=== PATIENT | male | born 1945 | race Caucasian/White ===

== ENCOUNTER 2021-01-06 09:50 | Outpatient (CLI) | payer MEDICARE, SELFPAY ==
--- NOTE | 2021-01-06 11:07 | ECG_ITS ---
Measurements Intervals [place] Rate: 55 P: -6 [place]: 209 QRS: -36 QRSD: 112 T: 10 QT: 404 QTc: 388 Interpretive Statements SINUS BRADYCARDIA WITH FIRST DEGREE AV BLOCK LEFT AXIS DEVIATION CANNOT RULE OUT SEPTAL INFARCT, AGE INDETERMINATE BORDERLINE T WAVE ABNORMALITY- INFERIOR LEADS BASELINE ARTIFACT- I, II, AVR ABNORMAL ECG Electronically Signed On 01-06-2021 12:06:21 CDT by Ervin May D.O.
[2021-01-06 11:54] LABS: Basophils Absolute Auto 0.1 K/mm3 (0.0-0.1); Basophils Percent Auto 1.8 % (0.2-1.2); Eosinophils Absolute Auto 0.2 K/mm3 (0-0.3); Eosinophils Percent Auto 5.1 % (0-4.4); Hematocrit 40.1 % (42.0-52.0); Hemoglobin 13.7 g/dL (14.0-18.0); Immature Granulocyte Absolute 0.01 K/mm3 (0.00-0.031); Immature Granulocyte Percent A 0.2 % (0-0.5); Lymphocytes Absolute Auto 0.64 K/mm3 (0.9-3.2); Lymphocytes Percent Auto 14.3 % (18.3-44.2); Mean Corpuscular HGB Conc 34.2 g/dl (32-36); Mean Corpuscular Hemoglobin 34.7 pg (26-34); Mean Corpuscular Volume 101.5 fl (80-100); Mean Platelet Volume 10.7 fl (7.4-10.4); Monocytes Absolute Auto 0.4 K/mm3 (0.1-0.6); Monocytes Percent Auto 9.4 % (2.6-8.5); Neutrophils Absolute Auto 3.1 K/mm3 (1.3-6.7); Neutrophils Percent Auto 69.2 % (45.5-73.1); Platelet Count Result 216 k/mm3 (150-375); Red Blood Count 3.95 M/mm3 (4.6-6.20); Red Cell Distribution Width 12.7 % (11.5-14.5); White Blood Count 4.5 K/mm3 (4.5-10.0)
[2021-01-06 11:57] LABS: Add Urine Microscopic? YES; Appearance Urine Clear (Clear); Bilirubin Urine Negative (Negative); Blood Urine 1+ (Negative); Color Urine Straw (Yellow); Glucose Urine UA Negative (Negative); Ketones Urine Negative (Negative); Leukocyte Esterase Ur Negative LEU/UL (Negative); Nitrate Urine Negative (Negative); Protein Urine Negative (Negative); Specific Grav Ur 1.009 (1.001-1.035); Urobilinogen Urine Negative mg/dL (<2.0); WBC Urine 0-3 /hpf
[2021-01-06 12:08] LABS: Prothrombin Time 13.1 Seconds (11.1-14.7)
[2021-01-06 12:09] LABS: Partial Thromboplastin Time 29.1 SECONDS (22.3-36.8)
[2021-01-06 12:12] LABS: Albumin Level 4.3 g/dL (3.5-5.1); Anion Gap 7 mmol/L (8-16); Blood Urea Nitrogen 17 mg/dL (9-20); Calcium 9.5 mg/dL (8.4-10.2); Carbon Dioxide 26 mmol/L (22-30); Chloride 105 mmol/L (98-107); Estimated Glomerular Filt Rate > 60; Glucose 97 mg/dL (65-110); Potassium 4.3 mmol/L (3.4-5.0); Sodium 138 mmol/L (137-145)
[2021-01-06 12:16] LABS: Urine Cotinine NEGATIVE
[2021-01-06 13:10] LABS: Hemoglobin A1C 5.3 % (<5.7)
== END 2021-01-06 09:51 | disposition home or self-care (01) ==
PROVIDERS: PCP Internal Medicine; Visit Provider Orthopaedic Surgery
DX: Z01.818 Encounter for other preprocedural examination (principal); M17.11 Unilateral primary osteoarthritis, right knee; R94.31 Abnormal electrocardiogram [ECG] [EKG]
CPT/HCPCS: 80048; 80307; 81001; 82040; 83036; 85025; 85610; 85730; 87081; 93005

== ENCOUNTER 2021-01-24 00:14 | Day surgery (SDC) | payer MEDICARE, SELFPAY ==
[2021-01-06 10:12] VITALS: BP 164/98; PULSE 64; RESP 18; TEMP 37.1; O2SAT 99; BMI 24.5
--- NOTE | 2021-01-23 12:04 | WPDANESEPPF ---
Anes - Initial Pre Proc Eval Procedure: Operation Date: 01/24/21 07:30 Proposed Procedures p Right Total Knee Arthroplasty - Chris Boland MD Date/Time: 01/23/21 12:04 Surgeon: Chris Boland MD Pre Op Diagnosis: Right Knee DJD Patient Data Age: 75 Gender: M Height: 1.83 m Weight: 82.2 kg Last Vital Signs Temp 37.1 C 01/06/21 10:12 Pulse 64 01/06/21 10:12 Resp 18 01/06/21 10:12 BP 164/98 H 01/06/21 10:12 Pulse Ox 99 01/06/21 10:12 Allergies Allergy/AdvReac Type Severity Reaction Status Date / Time No Known Allergies Allergy Verified 01/06/21 10:03 Home Medications Medication Instructions Recorded Confirmed Type chlorhexidine gluconate 4 % 1 applic TOPICAL ONCE #237 ml 11/10/20 01/06/21 Rx topical liquid apixaban [Eliquis] 5 mg PO BID 01/06/21 01/06/21 History celecoxib 200 mg PO DAILY 01/06/21 01/06/21 History rosuvastatin 10 mg PO HS 01/06/21 01/06/21 History Patient hx anesthesia problems: none Family hx anesthesia problems: none Results Review: All pre-operative results and documents have been reviewed as part of the pre-operative evaluation. [facility] Past Medical History Medical History (Updated 01/23/21 @ 12:05 by Fadi Higuera DO) Afib Bilateral knee pain DJD (degenerative joint disease) of knee Effusion, right knee Foot drop, bilateral Hyperlipidemia Left knee DJD Neuropathy Right knee DJD Right shoulder pain Rotator cuff tear Social History Social History Smoking packs per day: 1 Smoking cigarettes per day: 20.0 Years smoked: 6 Smoking pack-years: 6.00 Tobacco type: cigarettes Smoking end date: 10/06/74 Alcohol intake: never Drinks per week: 4 Substance use: never Living arrangements: alone Additional living arrangements comments: Gender identity (if verbalized by the patient): Male Spiritual care concerns: No Anes - Eval Final PreProcedure Day of Procedure 01/23/21 12:04 Patient weight: normal Heart: regular rate and rhythm Lungs: clear to auscultation and normal air movement Airway: Mallampati scale class II Neurological: alert and oriented Last oral intake: >/= 8 hours ASA classification: III Emergent: no Anesthetic plan: proceed Anesthesia type and monitoring: general GIVS and standard monitoring Results Review: All pre-operative results and documents have been reviewed as part of the pre-operative evaluation. Informed Consent: The patient's anesthetic plan and its attendant risks and benefits were discussed with the patient/family/POA. Questions were solicited and answers provided to the satisfaction of the patient/family/POA.
--- NOTE | 2021-01-23 12:05 | WPDANESPNB ---
Anes - Peripheral Nerve Block Date/Time: 01/23/21 12:05 I have discussed with the patient/family/POA the placement of a peripheral nerve block for post-operative pain management, including associated risks, benefits, complications, and side effects. Alternative methods of post-operative analgesia were detailed. Questions were solicited and answers provided to the satisfaction of the patient/family/POA. Time-Out: A pre-procedural Time-Out was completed immediately before starting the procedure and confirmed: Patient Identification, Site, Procedure, Patient Position and the Availability of Requisite Equipment. Clinical Indications: Acute post-operative pain management requested by the operative surgeon. Nerve Block Insertion Note Anes-nerve block: adductor canal right Patient position: supine Skin prep: chlorhexidine Needle: 22 gauge, stimulating, insulated echogenic needle. Needle length: 80 mm Technique: ultrasound Injectate: bupivacaine 0.5% with epi 5 mcg/ml (30cc - no epi) Observations: tolerated well Complications: none Procedure start time:: 727 Procedure end time:: 731
[2021-01-24] VITALS (16 sets, daily range): BP systolic 139–160; BP diastolic 83–97; PULSE 60–84; RESP 12–20; TEMP 35.9–36.7; O2SAT 93–100
--- NOTE | ~2021-01-24 | XR_ITS ---
EXAMINATION: XR knee RT 2V DATE: 01/24/2021 10:08 INDICATION: Postoperative evaluation following right knee arthroplasty. TECHNIQUE: Anteroposterior and lateral views of the right knee were obtained. COMPARISON: None. FINDINGS: Right total knee arthroplasty appears well seated and in near anatomic alignment. No associated qureshi lar resurfacing although there have been cheilectomies of osteophytes at the proximal and distal oscar ins of the patella. No fractures identified. Skin jaquan and expected postoperative subcutaneous an d intramedullary and intra-articular gas. IMPRESSION: 1. Right total knee arthroplasty, negative for postoperative purposes. Reviewed, dictated and finalized at location A.
[2021-01-24] MEDS: ACETAMINOPHEN 500 MG TABLET 1000 MG PO (06:25)
[2021-01-24] MEDS: TRANEXAMIC ACID 1,000MG/ISO100 1,000 MG/100 ML BAG 200 MG IVPB ×2 (06:36→09:08)
[2021-01-24] MEDS: LACTATED RINGERS 1,000 ML 30 ML IV CONT ×3 (06:42→11:03)
[2021-01-24] MEDS: ONDANSETRON INJ 4 MG/2 ML VIAL IV PUSH ×4 (06:55→21:09)
[2021-01-24] MEDS: FAMOTIDINE 20 MG/2 ML VIAL IV PUSH (06:55)
--- NOTE | 2021-01-24 07:23 | WPDHPUPDATE1 ---
History and Physical Update Update Date/Time: 01/24/21 07:23 History and Physical has been reviewed, including an updated exam of the patient. There are NO changes in the patient's condition. Risks, benefits, and alternatives have been discussed and questions answered. Patient agrees to proceed with procedure.
[2021-01-24] MEDS: ceFAZolin 2 GM/D5W 50 ML 2 GM/50 ML BAG IVPB ×3 (07:33→23:55)
[2021-01-24] MEDS: fentaNYL CITRATE INJ (*CRX) 100 MCG/2 ML VIAL 25 MCG IV PUSH ×8 (10:10→10:26)
--- NOTE | 2021-01-24 10:15 | W.PM.PROC2 ---
Procedure Note - Detailed Date of Procedure 01/24/21 Pre-op Diagnosis Right Knee DJD Post-op Diagnosis same Procedure Performed R TKA Surgeon Chris Boland MD Anesthesia general Description of Procedure THE RIGHT KNEE WAS PREPPED AND DRAPED IN THE STERILE FASHION. A MIDLINE SKIN INCISION WAS MADE. A MEDIAL PARAPATELLAR ARTHROTOMY WAS MADE. THE PATELLA WAS EVERTED. THERE WAS TRICOMPARTMENT DJD. THERE WAS MINIMAL PATELLA DJD. AN INTRAMEDULLARY COREY WAS PLACED IN THE FEMUR. A DISTAL FEMORAL CUT WAS MADE IN 5 DEGREES OF VALGUS REMOVING APPROXIMATELY 9 MM OF BONE FROM THE DISTAL FEMUR. THE FEMUR WAS SIZED TO 70. A 70 FEMORAL CUTTING BLOCK WAS PLACED IN 3 DEGREES OF EXTERNAL ROTATION AND IN ALIGNMENT WITH SILAS'S LINE AND THE TRANSEPICONDYLAR AXIS. ANTERIOR POSTERIOR AND CHAMFER CUTS WERE MADE. THE CUTS WERE EXCELLENT. NEXT AN INTRAMEDULLARY CUTTING GUIDE WAS PLACED IN THE TIBIA. A TRANS TIBIAL CUT WAS MADE ALONG THE LONG AXIS OF THE TIBIA. APPROXIMATELY 10 MM OF BONE WAS REMOVED FROM THE HIGH SIDE OF THE TIBIA. THE TIBIA WAS THEN PLANED TO A SMOOTH SURFACE. POSTERIOR FEMORAL OSTEOPHYTES WERE REMOVED FROM THE FEMORAL CONDYLES. A 79 TIBIAL TRIAL WAS PLACED IN ALIGNMENT WITH THE 1/3 MEDIAL ASPECT OF THE TIBIAL TUBERCLE. THEN A 70 FEMORAL TRIAL COMPONENT WAS PLACED. BOTH HAD EXCELLENT FITS. EVENTUALLY A 12 MM CR POLYETHYLENE TRIAL COMPONENT WAS PLACED. THE KNEE WAS TAKEN THROUGH A RANGE OF MOTION. THE KNEE CAME OUT TO FULL EXTENSION. THERE WAS NO ABNORMAL TILT TO THE PATELLA. THERE WAS GOOD A/P AND VARUS/VALGUS STABILITY. THERE WAS NO EXCESSIVE ROLL BACK WITH FLEXION. THE TRIAL COMPONENTS WERE REMOVED. THEN A 70 FEMORAL COMPONENT AND 79 TIBIAL COMPONENT WITH A 12 CR POLYETHYLENE COMPONENT WERE CEMENTED INTO PLACE. ONCE THE CEMENT WAS HARD THE KNEE WAS TAKEN THROUGH A ROM AGAIN AND FOUND TO BE STABLE WITH NO PATELLA TILT NO EXCESSIVE ROLL BACK WITH FLEXION AND GOOD STABILITY WITH COMPLETE AND FULL EXTENSION. THE KNEE WAS IRRIGATED WITH STERILE BETADINE AND WATER FOR ABOUT 3 MINUTES. THE BLEEDERS WERE CAUTERIZED. THE ARTHROTOMY WAS REPAIRED WITH NUMBER 1 VICRYL. THE SUB CUTANEOUS LAYER WITH 2-0 VICRYL AND THE SKIN WITH SEVEN. THE WOUND WAS WASHED AND A STERILE DRESSING WAS APPLIED. PATIENT WAS EXTUBATED. Estimated Blood Loss -150.0 Pathology none sent Complications No immediate complications Condition stable Disposition PACU
[2021-01-24] MEDS: HYDROmorphone HCL INJ (*CRX) 1 MG/ML SYR 0.5 MG IV PUSH ×6 (10:29→11:08)
[2021-01-24] MEDS: KETOROLAC 15 MG/ML VIAL (*BKC) IV PUSH (10:57)
--- NOTE | 2021-01-24 11:25 | ADMGEN ---
This patient, Arpit German, was admitted to Medical Room 256-. Patient/family oriented to hospital policies and general routines including ID bracelet, bed and alarms, visiting hours, pain management, procedures, bathroom and other care routines, personal items, smoking policy, room service/diet, and visiting hours. Information on how to activate the Rapid Response Team has been discussed. Patient/Family are encouraged to report perceived risks to care and to ask questions if they do not understand what they are told or what they should do.
--- NOTE | 2021-01-24 11:36 | PCOTNOTE ---
Attempted OT evaluation, per RN hold until afternoon due to increased pain, will follow and attempt in PM.
--- NOTE | 2021-01-24 13:12 | PCOTNOTE ---
Attempted OT evaluation, patient able to sit on edge of bed, then returned to bed reporting to nauseous to continue participating with therapy at this time. will follow and attempt at later time
[2021-01-24] MEDS: SODIUM CHLORIDE 0.9% IV 1,000 ML 125 ML IV CONT (14:15)
[2021-01-24] MEDS: DOCUSATE SODIUM 100 MG CAPSULE PO (16:30)
--- NOTE | 2021-01-24 21:30 | WPDCN ---
Assessment and Plan Assessment and plan (1) Degenerative joint disease of right knee: Code(s): M17.11 - Unilateral primary osteoarthritis, right knee Status: Acute (2) Paroxysmal atrial fibrillation: Code(s): I48.0 - Paroxysmal atrial fibrillation Status: Acute (3) Chronic anticoagulation: Code(s): Z79.01 - watermelon harvesting supervisor (current) use of anticoagulants Status: Acute (4) Peripheral neuropathy: Code(s): G62.9 - Polyneuropathy, unspecified Status: Acute (5) Hyperlipidemia: Code(s): E78.5 - Hyperlipidemia, unspecified Status: Chronic (6) Elevated blood pressure reading: Code(s): R03.0 - Elevated blood-pressure reading, without diagnosis of hypertension Status: Acute Additional Plan Postoperative day 0 status post right total knee arthroplasty. Wound care and pain control will be deferred to Dr. Boland as well as DVT prophylaxis. He is currently receiving supportive care for postoperative nausea and vomiting. PT/OT consulted. Fall precautions have been initiated. Patient sounds to be in a regular rate and rhythm at this time. Resume apixaban within okay with Dr. Boland. Continue rosuvastatin. Blood pressures have been a bit elevated postoperatively, perhaps due to pain and vomiting. Will continue to monitor these closely overnight. Baseline labs ordered for a.m. Thank you for allowing us to participate in this patient's care. Please do not hesitate to contact us with any questions. Supervising physician for this medical consultation is Dr. Jarrod Cruz. HPI Data of Consult Date/Time: 01/24/21 21:30 Requesting Physician: Chris Boland MD Primary Care Provider: Modesta ScottMD Consult Narrative Narrative: This is a 75-year-old male with paroxysmal atrial fibrillation, hyperlipidemia, and arthritis whom the hospitalist service has been consulted to manage his medical conditions postoperatively. The patient has had longstanding pain in his right knee not amenable to conservative outpatient treatment and thus he elected for replacement today. His surgery was performed under general anesthesia and I believe he received a regional block as well. No immediate complications were documented and estimated blood loss was 150 mL. Postoperatively his pain has been pretty well controlled however he has suffered from nausea and vomiting. He has not had much to eat or drink post surgery but his nausea is feeling better. He was up to the chair for about 30 minutes and reports being a bit woozy with that. Currently he has no significant complaints. He denies paresthesias, skin color, and temperature changes distal to the surgical site. He also denies fever, chills, and sweats. Review of Systems Review of Systems: Twelve systems were reviewed. No recent cold or flu symptoms. No sick contacts. About once every month or 2 he will go into atrial fibrillation, usually lasting no more than an hour so however more recently it has been lasting longer, upwards to a day. He is followed by [facility]. He does not require rate-controlling medications. He has been on Eliquis for quite some time and he has had no bleeding issues. Patient is also on a statin for hypercholesterolemia which he believes is well controlled. He has no personal history of venous thromboembolism. No history of cardiac disease. Except as documented, all other systems were reviewed and are negative. [facility] Past Medical History Medical History (Updated 01/25/21 @ 00:28 by Vida Espitia PA-C) Chronic anticoagulation Hyperlipidemia Paroxysmal atrial fibrillation Peripheral neuropathy Surgical History Surgical History (Updated 01/24/21 @ 21:30 by Vida Espitia PA-C) History of arthroplasty of right knee (01/24/21) History of arthroscopic knee surgery History of bilateral inguinal hernia
[2021-01-25] VITALS: BP 136/86; PULSE 76; RESP 16; TEMP 37.1; O2SAT 98
[2021-01-25 00:42] VITALS: BP 136/86; PULSE 76; RESP 16; TEMP 37.1; O2SAT 98
[2021-01-25 05:38] LABS: Basophils Percent Auto 0.2 % (0.2-1.2); Hematocrit 36.6 % (42.0-52.0); Hemoglobin 12.6 g/dL (14.0-18.0); Immature Granulocyte Absolute 0.03 K/mm3 (0.00-0.031); Immature Granulocyte Percent A 0.3 % (0-0.5); Lymphocytes Absolute Auto 0.98 K/mm3 (0.9-3.2); Mean Corpuscular HGB Conc 34.4 g/dl (32-36); Mean Corpuscular Hemoglobin 34.5 pg (26-34); Mean Corpuscular Volume 100.3 fl (80-100); Mean Platelet Volume 10.5 fl (7.4-10.4); Monocytes Absolute Auto 0.8 K/mm3 (0.1-0.6); Monocytes Percent Auto 8.2 % (2.6-8.5); Neutrophils Percent Auto 81.3 % (45.5-73.1); Platelet Count Result 228 k/mm3 (150-375); Red Blood Count 3.65 M/mm3 (4.6-6.20); Red Cell Distribution Width 12.6 % (11.5-14.5); White Blood Count 9.8 K/mm3 (4.5-10.0)
[2021-01-25 05:55] LABS: Alanine Aminotransferase 16 U/L (4-50); Albumin Level 3.5 g/dL (3.5-5.1); Alkaline Phosphatase 49 U/L (38-126); Anion Gap 3 mmol/L (8-16); Aspartate Amino Transferase 26 U/L (17-59); Bilirubin,Total 0.5 mg/dL (0.2-1.3); Blood Urea Nitrogen 13 mg/dL (9-20); Calcium 8.7 mg/dL (8.4-10.2); Carbon Dioxide 28 mmol/L (22-30); Chloride 104 mmol/L (98-107); Estimated CRCL calculation 63 ml/min; Estimated Glomerular Filt Rate > 60; Glucose 123 mg/dL (65-110); Sodium 135 mmol/L (137-145)
[2021-01-25 06:00] VITALS: BP 129/74; PULSE 74; RESP 18; TEMP 36.9; O2SAT 99
[2021-01-25] MEDS: ceFAZolin 2 GM/D5W 50 ML 2 GM/50 ML BAG IVPB (06:14)
[2021-01-25] MEDS: ACETAMINOPHEN 500 MG TABLET 1000 MG PO (06:17)
[2021-01-25] MEDS: CELECOXIB 200 MG CAPSULE PO (09:18)
[2021-01-25] MEDS: APIXABAN 5 MG TABLET PO (09:18)
[2021-01-25] MEDS: DOCUSATE SODIUM 100 MG CAPSULE PO (09:19)
[2021-01-25] MEDS: FAMOTIDINE 20 MG TABLET PO (09:19)
--- NOTE | 2021-01-25 11:32 | PM.IMPN ---
Progress Note: A&P Assessment and Plan (1) Degenerative joint disease of right knee: Code(s): M17.11 - Unilateral primary osteoarthritis, right knee Status: Acute Assessment and Plan: POD #1 S/p RTK per Dr. Boland Ortho following PT/OT Pain management DVT Ppx (2) Paroxysmal atrial fibrillation: Code(s): I48.0 - Paroxysmal atrial fibrillation Status: Acute Assessment and Plan: Rate controlled Eliquis resumed Monitor (3) Chronic anticoagulation: Code(s): Z79.01 - [facility] (current) use of anticoagulants Status: Acute Assessment and Plan: Noted above (4) Peripheral neuropathy: Code(s): G62.9 - Polyneuropathy, unspecified Status: Acute (5) Hyperlipidemia: Code(s): E78.5 - Hyperlipidemia, unspecified Status: Chronic Assessment and Plan: Continue statin (6) Elevated blood pressure reading: Code(s): R03.0 - Elevated blood-pressure reading, without diagnosis of hypertension Status: Acute Assessment and Plan: Resolved Additional Plan Code status: FULL Disposition: Likely d/c today Subjective Date/time seen: 01/25/21 11:32 Interval history: pt seen and evaluated; pain controlled; he has been up with therapy; had some nausea last evening that has resolved; no new complaints Review of Systems Review of Systems: All systems reviewed & are unremarkable except as noted in HPI and below Exam Const: General: no acute distress, alert and awake Orientation/consciousness: patient oriented x3 HENMT: Head: normocephalic and atraumatic Ears: hearing grossly normal bilaterally and external ears normal Face and sinus: face symmetric Mouth: Yes Normal oral and palatal mucosa present Eyes: EOM: EOMs intact bilaterally Neck: Neck: full ROM, trachea midline and no JVD Resp: Effort & Inspection: normal respiratory effort Auscultation: clear to auscultation bilaterally Cardio: Jugular venous distension: no JVD Rate: regular rate Heart sounds: S1 normal heart sound present and S2 normal heart sound present Peripheral pulses: Peripheral pulses 2+ throughout GI: Inspection: normal to inspection GI Palp: Yes Soft to palpation Percussion: Yes normal to percussion Auscultation: normal bowel sounds : General: Yes no CVA tenderness Skin: General skin exam: no rashes or lesions noted Rashes: no rashes Neuro: General: patient oriented x3 and CN's II-XI intact bilaterally Speech: normal speech Motor exam (neuro): 5/5 motor strength present throughout Extrem: General: capillary refill normal (Right knee dressing intact ) Psych: Appearance: grossly normal Affect: normal affect Judgement: Good judgement present (Psych) Objective Data Vital Signs Vital Signs: Vital Signs - 24 hr 01/24/21 11:35 01/24/21 11:50 01/24/21 12:20 Temperature 36.3 C L 36.2 C L 36.3 C L Pulse Rate 84 74 74 Respiratory Rate 20 18 20 Blood Pressure 153/86 H 143/83 H 150/91 H Pulse Oximetry 100 100 100 01/24/21 14:00 01/24/21 17:20 01/24/21 20:00 Temperature 36.6 C 35.9 C L Pulse Rate 69 81 81 Respiratory Rate 14 16 18 Blood Pressure 152/95 H 160/91 H Pulse Oximetry 100 97 97 01/24/21 20:42 01/24/21 21:06 01/25/21 00:00 Temperature 36.3 C L 37.1 C Pulse Rate 81 80 76 Respiratory Rate 18 16 16 Blood Pressure 152/92 H 136/86 Pulse Oximetry 97 97 98 01/25/21 00:42 01/25/21 06:00 Temperature 37.1 C 36.9 C Pulse Rate 76 74 Respiratory Rate 16 18 Blood Pressure 136/86 129/74 Pulse Oximetry 98 99 Intake/Output Intake/Output: Intake & Output 01/22/21 01/23/21 01/24/21 01/25/21 23:59 23:59 23:59 23:59 Intake Total 900 620 Output Total 150 1750 Balance 750 -1130 Meds/Results Medications: Active Medications Generic Name Dose Route Start Last Admin Trade Name Freq PRN Reason Stop Dose Admin Acetaminophen 1,000 mg 01/24/21 11:21 01/25/21 06:17 Acetaminophen 500 Mg Tablet PO 1,000
[2021-01-25 13:06] VITALS: BP 126/66; PULSE 80; RESP 18; TEMP 37.1; O2SAT 100
--- NOTE | 2021-01-25 13:12 | P.PNAN_ITS ---
Anes - Prog Note Post-Op Date/Time: 01/25/21 13:12 Cardiovascular status: normal Respiratory status: normal Airway patency: baseline Mental status: baseline Post-Op hydration status: normal Vital Signs: Last Vital Signs Temp 36.9 C 01/25/21 06:00 Pulse 74 01/25/21 06:00 Resp 18 01/25/21 06:00 BP 129/74 01/25/21 06:00 Pulse Ox 99 01/25/21 06:00 Pain Score (VAS): 0 I/O: Intake & Output 01/24/21 01/25/21 01/25/21 23:59 07:59 15:59 Intake Total 500 120 Output Total 150 1750 Balance -150 -1250 120 Laboratory Tests 01/25/21 05:14 01/25/21 05:14 01/25/21 01/25/21 05:14 05:14 WBC 9.8 RBC 3.65 L Hgb 12.6 L Hct 36.6 L MCV 100.3 H MCH 34.5 H MCHC 34.4 RDW 12.6 Plt Count 228 MPV 10.5 H Immature Gran % (Auto) 0.3 Neut % (Auto) 81.3 H Lymph % (Auto) 10.0 L [place] % (Auto) 8.2 Eos % (Auto) 0.0 Baso % (Auto) 0.2 Lymph # (Auto) 0.98 [place] # (Auto) 0.8 H Eos # (Auto) 0.0 Baso # (Auto) 0.0 Abs Immat Gran (auto) 0.03 Absolute Neuts (auto) 8.0 H Absolute Nucleated RBC 0.0 Nucleated RBC % 0.0 Sodium 135 L Potassium 4.0 Chloride 104 Carbon Dioxide 28 Anion Gap 3 L BUN 13 Creatinine 1.00 Estim Creat Clear Calc 63 Estimated GFR > 60 Glucose 123 H Calcium 8.7 Total Bilirubin 0.5 Direct Bilirubin 0.0 AST 26 ALT 16 Alkaline Phosphatase 49 Total Protein 6.0 L Albumin 3.5 Post-procedural complaints: none Patient Feedback: Patient satisfied with anesthetic care.
--- NOTE | 2021-01-25 15:45 | PM.PNORT ---
Progress Note: A&P Additional Plan POD DOING WELL. STABLE. PASSED PT. OK TO DC HOME F/U IN 3 WEEKS. 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 [employer] SIGN Objective Data Vital Signs Vital Signs: Vital Signs - 24 hr 01/24/21 17:20 01/24/21 20:00 01/24/21 20:42 Temperature 35.9 C L Pulse Rate 81 81 81 Respiratory Rate 16 18 18 Blood Pressure 160/91 H Pulse Oximetry 97 97 97 01/24/21 21:06 01/25/21 00:00 01/25/21 00:42 Temperature 36.3 C L 37.1 C 37.1 C Pulse Rate 80 76 76 Respiratory Rate 16 16 16 Blood Pressure 152/92 H 136/86 136/86 Pulse Oximetry 97 98 98 01/25/21 06:00 01/25/21 13:06 Temperature 36.9 C 37.1 C Pulse Rate 74 80 Respiratory Rate 18 18 Blood Pressure 129/74 126/66 Pulse Oximetry 99 100 Intake/Output Intake/Output: Intake & Output 01/22/21 01/23/21 01/24/21 01/25/21 23:59 23:59 23:59 23:59 Intake Total 900 860 Output Total 150 1750 Balance 750 -890 Meds/Results Medications: Active Medications Generic Name Dose Route Start Last Admin Trade Name Freq PRN Reason Stop Dose Admin Acetaminophen 1,000 mg 01/24/21 11:21 01/25/21 06:17 Acetaminophen 500 Mg Tablet PO 1,000 mg Q6H PRN Administration Pain Rated 1-3 Apixaban 5 mg 01/25/21 09:00 01/25/21 09:18 Apixaban 5 Mg Tablet PO 5 mg BID RAMILA Administration Celecoxib 200 mg 01/25/21 09:00 01/25/21 09:18 Celecoxib 200 Mg Capsule PO 200 mg DAILY RAMILA Administration Diazepam 5 mg 01/24/21 11:21 Diazepam (*Crx) 5 Mg Tablet PO Q8H PRN Spasms Diphenhydramine HCl 25 mg 01/24/21 11:21 Diphenhydramine Hcl Inj 50 Mg/Ml Vial IV PUSH Q6H PRN Itching Docusate Sodium 100 mg 01/24/21 17:00 01/25/21 09:19 Docusate Sodium 100 Mg Capsule PO 100 mg BID RAMILA Administration Famotidine 20 mg 01/24/21 21:00 01/25/21 09:19 Famotidine 20 Mg Tablet PO 20 mg Q12HR RAMILA Administration Naloxone HCl 0.1 mg 01/24/21 11:21 Naloxone Hcl 0.4 Mg/Ml Vial IV PUSH Q2M PRN Opiate Reversal Ondansetron HCl 4 mg 01/24/21 11:21 01/24/21 21:09 Ondansetron Inj 4 Mg/2 Ml Vial IV PUSH 4 mg Q4H PRN Administration Nausea And Vomiting Oxycodone HCl 10 mg 01/24/21 11:21 Oxycodone Hcl (*Crx) 5 Mg Tab Ir PO Q4H PRN Pain Rated 7-10 Oxycodone/Acetaminophen 1 tablet 01/24/21 11:21 Oxycodone/Acetaminophen (*Crx) 5-325 Mg Tablet PO Q4H PRN Pain Rated 4-6 Rosuvastatin Calcium 10 mg 01/24/21 21:00 01/25/21 04:31 Rosuvastatin 10 Mg Tablet PO Not Given HS [facility] Radiology Results: ITS Impressions Knee X-Ray 01/24/21 10:18 IMPRESSION: 1. Right total knee arthroplasty, negative for postoperative purposes. Labs Labs: Laboratory Results - last 24 hr 01/25/21 01/25/21 05:14 05:14 WBC 9.8 RBC 3.65 L Hgb 12.6 L Hct 36.6 L MCV 100.3 H MCH 34.5 H MCHC 34.4 RDW 12.6 Plt Count 228 MPV 10.5 H Immature Gran % (Auto) 0.3 Neut % (Auto) 81.3 H Lymph % (Auto) 10.0 L [place] % (Auto) 8.2 Eos % (Auto) 0.0 Baso % (Auto) 0.2 Lymph # (Auto) 0.98 [place] # (Auto) 0.8 H Eos # (Auto) 0.0 Baso # (Auto) 0.0 Abs Immat Gran (auto) 0.03 Absolute Neuts (auto) 8.0 H Absolute Nucleated RBC 0.0 Nucleated RBC % 0.0 Sodium 135 L Potassium 4.0 Chloride 104 Carbon Dioxide 28 Anion Gap 3 L BUN 13 Creatinine 1.00 Estim Creat Clear Calc 63 Estimated GFR > 60 Glucose 123 H Calcium 8.7 Total Bilirubin 0.5 Direct Bilirubin 0.0 AST 26 ALT 16 Alkaline Phosphatase 49 Total Protein 6.0 L Albumin 3.5
--- NOTE | 2021-01-25 15:46 | PM.DS ---
DS: Admitting Diagnosis Discharge Date 01/25/21 Admitting Diagnosis RIGHT KNEE DJD DS: Discharge Diagnosis Discharge Diagnosis (1) Degenerative joint disease of right knee: Code(s): M17.11 - Unilateral primary osteoarthritis, right knee Status: Acute DS: Summary Hospital Course Hospital Course: GALEN UNDERWENT R TKA FOR RIGHT KNEE SEVERE DJD AND KNEE PAIN. HE DID VERY WELL DURING SURGERY. POSTOP HE HAD GOOD PAIN CONTROL AND WAS CLEARED BY PT THIS AFTERNOON TO BE DISCHARGED. HE HAD A REGULAR DIET. HIS HGB REMAINED STABLE. HE WOULD BE DISCHARGED TO HOME WITH HOME HEALTH REGULAR DIET DVT PROPHYLAXIS AND WOULD F/U IN 3 WEEKS. Time spent discussing smoking cessation with patient: more than 10 minutes Status at Discharge Functional status at discharge: uses cane/walker Overall status at discharge: patient is not back to baseline Time Spent with Patient Time attestation: Total time spent providing and/or coordinating discharge services: Time spent: Less than 30 minutes DS: Data Data Completed and Pending Labs on day of discharge: Labs from last 24 hours 01/25/21 01/25/21 05:14 05:14 WBC 9.8 RBC 3.65 L Hgb 12.6 L Hct 36.6 L MCV 100.3 H MCH 34.5 H MCHC 34.4 RDW 12.6 Plt Count 228 MPV 10.5 H Immature Gran % (Auto) 0.3 Neut % (Auto) 81.3 H Lymph % (Auto) 10.0 L [place] % (Auto) 8.2 Eos % (Auto) 0.0 Baso % (Auto) 0.2 Lymph # (Auto) 0.98 [place] # (Auto) 0.8 H Eos # (Auto) 0.0 Baso # (Auto) 0.0 Abs Immat Gran (auto) 0.03 Absolute Neuts (auto) 8.0 H Absolute Nucleated RBC 0.0 Nucleated RBC % 0.0 Sodium 135 L Potassium 4.0 Chloride 104 Carbon Dioxide 28 Anion Gap 3 L BUN 13 Creatinine 1.00 Estim Creat Clear Calc 63 Estimated GFR > 60 Glucose 123 H Calcium 8.7 Total Bilirubin 0.5 Direct Bilirubin 0.0 AST 26 ALT 16 Alkaline Phosphatase 49 Total Protein 6.0 L Albumin 3.5 Discharge Plan Discharge Patient Disposition: Home Health Service Discharge Instructions: Post Op Total Knee Replacement Instructions Dr. Chris Boland [phone] ? Your dressing will be changed prior to your discharge. You will be sent home with one additional dressing to be changed in 5 days by the home health RN. Your jaquan will be removed on the 14th day after surgery and steri-strips will be placed. ? You may shower with your dressing but do not submerge in a bath tub. ? Do not drive or operate machinery until you are released by Dr. Boland. ? Do not walk without a walker for any reason until you are released by Dr. Boland. ? Continue to use your ice machine. Please use a towel or pillow case to protect your skin before applying your ice machine. ? Do NOT place a pillow under your knee. You may use a pillow from the calf down if needed. ? You may begin use of your CPM machine at home if you have been given one pre-operatively. DO NOT USE WHILE YOU ARE SLEEPING. ? Your follow up appointment is indicated in your discharge instructions. ? Your medications have been sent to your pharmacy. ? Please contact our office with any questions/concerns regarding your knee at [phone]. Patient Instructions: Antibiotic Form, Apixaban (By mouth) Stand Alone Forms: General Discharge Information Follow-up/Referrals: Chris Boland MD [Physician] - Keep Reg. Scheduled Appt. Discharge Medications: No Action celecoxib 200 mg capsule 200 mg PO DAILY RF: 0 rosuvastatin 10 mg tablet 10 mg PO HS RF: 0 Eliquis 5 mg tablet 5 mg PO BID RF: 0 chlorhexidine gluconate [Hibiclens] 4 % liquid 1 applic topical ONCE Qty: 237 RF: 0
[2021-01-25] MEDS: oxyCODONE/ACETAMINOPHEN (*CRX) 5-325 MG TABLET 1 TABLET PO (16:17)
== END 2021-01-25 16:42 | disposition home health service (06) ==
LOC: ANHSURGERY 06:01 → ANH2MED 11:22
PROVIDERS: Physician Assistant; PCP Internal Medicine; Visit Provider Orthopaedic Surgery
PROC: (CPT 27447; principal; 2021-01-24 07:30)
DX: M17.11 Unilateral primary osteoarthritis, right knee (principal); G89.18 Other acute postprocedural pain; I48.0 Paroxysmal atrial fibrillation; R03.0 Elevated blood-pressure reading, without diagnosis of hypertension; E78.5 Hyperlipidemia, unspecified; G62.9 Polyneuropathy, unspecified; Z79.01 Long term (current) use of anticoagulants; Z87.891 Personal history of nicotine dependence
CPT/HCPCS: 27446; 64447; 36415; 73560; 80048; 80076; 80307; 81001; 82040; 83036; 85025; 85610; 85730; 86850; 86900; 86901; 87081; 93005; 97110; 97116; 97161; 97165; A9270; C1713; C1776; J0171; J0690; J1100; J1170; J1885; J2001; J2270; J2405; J2704; J2795; J3010; J7030; J7120